=== PATIENT | male | born 1965 ===

== ENCOUNTER 2019-07-26 07:17 | Emergency (ER) | payer SELFPAY ==
[~2019-07-26] VITALS: Ht 175.3 cm; Wt 109.1 kg
[2019-07-26] MEDS ORDERED: normal saline 1000ml 1,000 ML IV ONE (07:23)
[2019-07-26 07:42] LABS: BASOPHILS # (AUTO) 0.1 X10'3 (0-0.2); BASOPHILS % (AUTO) 1.1 % (0-1); EOSINOPHILS # (AUTO) 0.1 X10'3 (0-0.9); EOSINOPHILS % (AUTO) 0.8 % (0-6); LYMPHOCYTES # (AUTO) 1.8 X10'3 (1.1-4.8); LYMPHOCYTES % (AUTO) 23.9 % (21-51); MEAN CORPUSCULAR HEMOGLOBIN 22.1 PG (27.0-31.0); MEAN CORPUSCULAR VOLUME 76.2 FL (78-98); MEAN PLATELET VOLUME 9.5 FL (7.4-10.4); MONOCYTES # (AUTO) 1.1 X10'3 (0-0.9); MONOCYTES % (AUTO) 13.8 % (2-12); NEUTROPHILS # (AUTO) 4.6 X10'3 (1.8-7.7); NEUTROPHILS % (AUTO) 60.4 % (42-75); PLATELET COUNT 188 X10'3 (140-440); RED BLOOD COUNT 2.39 X10'6 (4.70-6.10); RED CELL DISTRIBUTION WIDTH 20.7 % (11.5-14.5); WHITE BLOOD COUNT 7.6 X10'3 (4.5-11.0)
[2019-07-26 07:46] LABS: HEMATOCRIT 18.2 % (42.0-52.0); HEMOGLOBIN 5.3 g/dl (14.0-17.9)
[2019-07-26 07:49] LABS: ALANINE AMINOTRANSFERASE 101 U/L (12-78); ALBUMIN 2.6 G/DL (3.4-5.0); ALBUMIN/GLOBULIN RATIO 0.8 (1.1-1.5); ALKALINE PHOSPHATASE 95 IU/L (46-116); ANION GAP 19 (8-16); ASPARTATE AMINO TRANSFERASE 127 U/L (10-37); BILIRUBIN,TOTAL 0.7 MG/DL (0.1-1.0); BLOOD UREA NITROGEN 32 MG/DL (7-18); BUN/CREATININE RATIO 15.8 (5.4-32.0); CHLORIDE 103 MMOL/L (99-107); CREATININE 2.02 MG/DL (0.60-1.10); GLUCOSE 194 MG/DL (70-104); POTASSIUM 5.1 MMOL/L (3.5-5.1); SODIUM 141 MMOL/L (135-145); TOTAL CARBON DIOXIDE 19.3 MMOL/L (24-32); TOTAL PROTEIN 5.7 G/DL (6.4-8.2); eGFR 35 ML/MIN
--- NOTE | 2019-07-26 07:50 | NUR ---
pt arrives code 3 with amr via [place], cpr in progress. 3 rounds of epi in the field, io was established to the left lower extremity. order to give narcan per dr manzano in the field. pt was intubated in the field. ems reports PEA with a rate of 58 bpm staff in the room: dr manzano, cory rn, pepe rn, ruthy rn, chetan rt, [facility] radiology, er techs: zuly craven and erwin. amp of bicarb given at 0720 blood glucose of 142 at 0721 amp of glucose at 0722 20g piv to the right ac at 0723 round of epi at 0726 pulse check at 0730, no pulses continued cpr round of epi at 0731 0731 family at the bedside pulse check at 0734, no pulses continued cpr round of epi at 0734 code terminated/called off by dr manzano at 0737
[2019-07-26 07:51] LABS: PARTIAL THROMBOPLASTIN TIME 30 SECONDS (22-32)
[2019-07-26 07:54] LABS: ETHANOL < 0.010 GM/DL (0.0-0.010); MAGNESIUM 2.3 MG/DL (1.5-2.4); PHOSPHORUS 7.8 MG/DL (2.3-4.5)
[2019-07-26] MEDS ORDERED: dextrose 50%-water 50ml dispensing syringe IV ONE (08:00)
[2019-07-26] MEDS ORDERED: epiNEPHrine 0.1mg/ml 10ml syringe ONE (08:00)
[2019-07-26] MEDS ORDERED: sodium bicarbonate (8.4%) 1 mEq/ml syringe ONE (08:00)
[2019-07-26 08:04] LABS: NUCLEATED RED BLOOD CELLS 1 /100WBC (0-0); TOTAL CELLS COUNTED 100
[2019-07-26 08:07] LABS: PLATELET ESTIMATE NORMAL
[2019-07-26 08:08] LABS: ANISOCYTOSIS 3+; MICROCYTOSIS 1+
[2019-07-26 08:09] LABS: POLYCHROMASIA FEW
[2019-07-26 08:10] LABS: ELLIPTOCYTES FEW; POIKILOCYTOSIS 1+; SCHISTOCYTES FEW
[2019-07-26 08:11] LABS: HYPOCHROMASIA 2+
--- NOTE | 2019-07-26 09:19 | NUR ---
reece dong [phone] [place], [place] [id number]
--- NOTE | 2019-07-26 10:16 | NUR ---
Spoke with family and body to be released to [facility]. [facility] contacted.
--- NOTE | 2019-07-26 11:10 | NUR ---
spoke with cass from [facility], she was inquiring what [facility] the pt was going to, it is [place] [facility] [place].
== END 2019-07-26 12:08 | disposition expired ==
LOC: ER 07:18
DX: I46.9 Cardiac arrest, cause unspecified (principal); R60.0 Localized edema; I27.20 Pulmonary hypertension, unspecified; R73.9 Hyperglycemia, unspecified
CPT/HCPCS: 36415; 80053; 80320; 82948; 83735; 84100; 84484; 85025; 85610; 85730; 92950; 99291; J0171